=== PATIENT | female | born 1990 | race Two or more races ===

== ENCOUNTER 2020-03-01 11:48 | Inpatient (IN) ==
[2020-03-01 12:44] LABS: ABS Lymphocytes 2.4 10^3/ul (1.0-4.8); ABS Monocytes 0.6 10^3/ul (0-0.8); ABS Neutrophils 6.9 10^3/ul (1.5-7.7); Eosinophil % 0.5 %; Hematocrit 34 % (35-47); Hemoglobin 12.2 g/dL (12.0-16.0); Lymphocyte % 23.9 %; Mean Corpuscular HGB Conc 36 g/dL (31-36); Mean Corpuscular Hemoglobin 33 pg (27-31); Mean Corpuscular Volume 93 fL (80-97); Mean Platelet Volume 7.3 fL (7.4-10.4); Nucleated Red Blood Cells % 0.1; Platelet Count 180 10^3/uL (150-450); Red Blood Count 3.69 10^6 /uL (3.70-4.87); Red Cell Distribution Width 16 % (10-15); White Blood Count 9.9 10^3/uL (3.5-10.8)
[2020-03-01 13:06] LABS: Albumin 3.7 g/dL (3.2-5.2); Albumin/Globulin Ratio 1.3 (1-3); BUN/Creatinine Ratio 14.8 (8-20); Calcium 9.6 mg/dL (8.6-10.3); EGFR African American 161.5 (>60); EGFR Non-African American 133.5 (>60); Globulin 2.8 g/dL (2-4); Potassium 3.8 mmol/L (3.5-5.0); Total Bilirubin 0.4 mg/dL (0.2-1.0); Total Protein 6.5 g/dL (6.4-8.9); Uric Acid 5.3 mg/dL (2.3-6.6)
[2020-03-01] MEDS ORDERED: Lactated Ringers 1000 ml BAG 1,000 ML IV ONE (13:56)
[2020-03-01 15:35] LABS: Urine Benzodiazepine Screen None Detected (None Detect); Urine Cannabinoids Screen None Detected (None Detect); Urine Opiates Screen Presumptive Positive (None Detect)
[2020-03-01 21:35] LABS: Urine Benzodiazepine Screen None Detected (None Detect); Urine Cannabinoids Screen None Detected (None Detect); Urine Opiates Screen None Detected (None Detect)
[2020-03-02] MEDS ORDERED: HYDROmorphone 1 MG/1 ML SYRINGE IV SLOW PU ONE (00:38)
[2020-03-02] MEDS ORDERED: Promethazine INJ(RESTRICTED) 25 MG/ML 1 ml VIAL IV PRN (00:41)
[2020-03-02] MEDS ORDERED: HYDROmorphone 0.5 MG/0.5 ML SYRINGE IV SLOW PU ONE (01:00)
[2020-03-02] MEDS: Lactated Ringers 1000 ml BAG 1,000 ML IV SCH ×2 (10:45→11:53)
[2020-03-02] MEDS ORDERED: OBEPIDURAL 250 ML EPIDURAL ONE (11:36)
[2020-03-02 12:11] LABS: ABS Lymphocytes 2.6 10^3/ul (1.0-4.8); ABS Monocytes 0.9 10^3/ul (0-0.8); ABS Neutrophils 13.2 10^3/ul (1.5-7.7); Eosinophil % 0.1 %; Hematocrit 37 % (35-47); Hemoglobin 12.8 g/dL (12.0-16.0); Lymphocyte % 15.4 %; Mean Corpuscular HGB Conc 35 g/dL (31-36); Mean Corpuscular Hemoglobin 32 pg (27-31); Mean Corpuscular Volume 93 fL (80-97); Mean Platelet Volume 7.7 fL (7.4-10.4); Platelet Count 171 10^3/uL (150-450); Red Blood Count 3.97 10^6 /uL (3.70-4.87); Red Cell Distribution Width 16 % (10-15); White Blood Count 16.7 10^3/uL (3.5-10.8)
[2020-03-02] MEDS ORDERED: EPHEDrine (Pressors) 50 MG/ML VIAL IV PUSH PRN (13:53)
[2020-03-02] MEDS ORDERED: Phenylephrine 40 mcg/mL 10mL (400mcg) SYRINGE IV PUSH PRN (13:53)
[2020-03-02] MEDS ORDERED: Lactated Ringers 1000 ml BAG 500 ML IV PRN (13:53)
[2020-03-02] MEDS ORDERED: Sodium Citrate/Citric Acid LIQ 15 ML UDC PO PRN (13:53)
[2020-03-02] MEDS ORDERED: Lactated Ringers 1000 ml BAG 1,000 ML IV ONE (13:53)
[2020-03-02] MEDS ORDERED: OBEPIDURAL 250 ML EPIDURAL SCH (14:00)
[2020-03-02] MEDS ORDERED: Lactated Ringers 1000 ml BAG 1,000 ML IV SCH ×2 (14:00→23:00)
[2020-03-02] MEDS ORDERED: Oxytocin in LR 20 UNITS/1,000 ML BAG IVPB SCH (18:00)
[2020-03-02] MEDS ORDERED: Glycerin ADULT 2.4 gm SUPP PR PRN (22:46)
[2020-03-03] MEDS ORDERED: Lidocaine 1% VIAL 10 MG/ML VIAL ONE (00:03)
[2020-03-03] MEDS: Witch Hazel PAD JAR TOPICAL PRN (01:46)
[2020-03-03] MEDS: Dibucaine 1% OINT 28.35 GM TUBE PR PRN (01:47)
[2020-03-03 06:56] LABS: ABS Lymphocytes 2.8 10^3/ul (1.0-4.8); ABS Monocytes 0.8 10^3/ul (0-0.8); ABS Neutrophils 12.1 10^3/ul (1.5-7.7); Eosinophil % 0.1 %; Hematocrit 27 % (35-47); Hemoglobin 9.4 g/dL (12.0-16.0); Lymphocyte % 17.5 %; Mean Corpuscular HGB Conc 35 g/dL (31-36); Mean Corpuscular Hemoglobin 33 pg (27-31); Mean Corpuscular Volume 94 fL (80-97); Mean Platelet Volume 7.1 fL (7.4-10.4); Platelet Count 156 10^3/uL (150-450); Red Blood Count 2.88 10^6 /uL (3.70-4.87); Red Cell Distribution Width 16 % (10-15); White Blood Count 15.7 10^3/uL (3.5-10.8)
[2020-03-03 20:55] LABS: Hematocrit 26 % (35-47); Hemoglobin 8.6 g/dL (12.0-16.0); Mean Corpuscular HGB Conc 33 g/dL (31-36); Mean Corpuscular Hemoglobin 31 pg (27-31); Mean Corpuscular Volume 95 fL (80-97); Mean Platelet Volume 7.2 fL (7.4-10.4); Platelet Count 204 10^3/uL (150-450); Red Blood Count 2.76 10^6 /uL (3.70-4.87); Red Cell Distribution Width 16 % (10-15)
[2020-03-03 21:11] LABS: Albumin 3.2 g/dL (3.2-5.2); Albumin/Globulin Ratio 1.3 (1-3); BUN/Creatinine Ratio 13.6 (8-20); Calcium 8.8 mg/dL (8.6-10.3); EGFR African American 128.1 (>60); EGFR Non-African American 105.9 (>60); Globulin 2.4 g/dL (2-4); Potassium 4.1 mmol/L (3.5-5.0); Total Bilirubin 0.2 mg/dL (0.2-1.0); Total Protein 5.6 g/dL (6.4-8.9)
[2020-03-04] MEDS: Dibucaine 1% OINT 28.35 GM TUBE PR PRN (08:20)
[2020-03-04] MEDS: Witch Hazel PAD JAR TOPICAL PRN (08:20)
[2020-03-05 07:33] VITALS: BP 138/85
[2020-03-05 07:39] LABS: ABS Eosinophils 0.1 10^3/ul (0-0.6); ABS Lymphocytes 3.2 10^3/ul (1.0-4.8); ABS Monocytes 0.6 10^3/ul (0-0.8); ABS Neutrophils 9.4 10^3/ul (1.5-7.7); Eosinophil % 0.7 %; Hematocrit 24 % (35-47); Hemoglobin 8.3 g/dL (12.0-16.0); Lymphocyte % 23.8 %; Mean Corpuscular HGB Conc 34 g/dL (31-36); Mean Corpuscular Hemoglobin 33 pg (27-31); Mean Corpuscular Volume 95 fL (80-97); Mean Platelet Volume 7.1 fL (7.4-10.4); Platelet Count 177 10^3/uL (150-450); Red Blood Count 2.55 10^6 /uL (3.70-4.87); Red Cell Distribution Width 16 % (10-15); White Blood Count 13.3 10^3/uL (3.5-10.8)
[2020-03-05 09:03] LABS: Albumin 3.2 g/dL (3.2-5.2); Albumin/Globulin Ratio 1.3 (1-3); BUN/Creatinine Ratio 13.8 (8-20); Calcium 8.7 mg/dL (8.6-10.3); EGFR African American 130.4 (>60); EGFR Non-African American 107.8 (>60); Globulin 2.4 g/dL (2-4); Potassium 3.8 mmol/L (3.5-5.0); Total Bilirubin 0.2 mg/dL (0.2-1.0); Total Protein 5.6 g/dL (6.4-8.9); Uric Acid 6.1 mg/dL (2.3-6.6)
[2020-03-05] MEDS ORDERED: Varicella Virus Vaccine Live 0.5 ML VIAL SUBCUT ONE (09:52)
== END 2020-03-05 14:30 | disposition home or self-care (01) | DRG 560 ==
LOC: MCHOBOUT 11:48 → MCHOB 13:54
PROVIDERS: ADMIT Obstetrics & Gynecology; ATTEND Obstetrics & Gynecology